=== PATIENT | female | born 1955 | race Caucasian/White ===

== ENCOUNTER 2023-11-25 10:15 | Outpatient (CLI) | payer MEDICARE ==
[2023-11-25 14:14] LABS: CALCIUM 9.8 mg/dL (8.5-10.3); CREATININE 0.9 mg/dL (0.6-1.3); POTASSIUM 3.8 mmol/L (3.5-4.5)
== END 2023-11-25 10:30 | disposition home or self-care (01) ==
LOC: LAB.N 10:15
PROVIDERS: ATTEND Family Medicine
DX: U07.1 COVID-19 (principal)
CPT/HCPCS: 36415; 80048

== ENCOUNTER 2024-01-11 09:30 | Outpatient (CLI) | payer MEDICARE ==
[2024-01-11 11:52] LABS: BASOPHILS # (AUTO) 0.1 10^3/uL (0.0-0.1); BASOPHILS % (AUTO) 1.3 %; EOSINOPHILS # (AUTO) 0.2 10^3/uL (0.0-0.7); EOSINOPHILS % (AUTO) 3.8 %; HCT - HEMATOCRIT 43.7 % (37.0-47.0); HGB - HEMOGLOBIN 13.8 g/dL (12.0-16.0); LYMPHOCYTES # (AUTO) 1.5 10^3/uL (1.5-3.5); LYMPHOCYTES % (AUTO) 31.2 %; MEAN CORPUSCULAR HEMOGLOBIN 29.4 pg (27.0-31.0); MEAN CORPUSCULAR HGB CONC 31.6 g/dL (32.0-36.0); MONOCYTES # (AUTO) 0.5 10^3/uL (0.0-1.0); MONOCYTES % (AUTO) 10.9 %; NEUTROPHILS # (AUTO) 2.5 10^3/uL (1.5-6.6); NEUTROPHILS % (AUTO) 52.2 %; PLT - PLATELET COUNT 313 10^3/uL (130-450); RED CELL DISTRIBUTION WIDTH 13.6 % (12.0-15.0); WHITE BLOOD COUNT 4.8 x10^3/uL (4.8-10.8)
[2024-01-11 12:15] LABS: ALBUMIN 4.5 g/dL (3.2-5.5); ALBUMIN/GLOBULIN RATIO 1.6 (1.0-2.2); ALKALINE PHOSPHATASE 98 IU/L (42-121); ALT ALANINE AMINOTRANSFERASE 31 IU/L (10-60); AST ASPARTATE AMINOTRANSFERASE 23 IU/L (10-42); BILIRUBIN,TOTAL 0.4 mg/dL (0.2-1.0); BUN - BLOOD UREA NITROGEN 12 mg/dL (6-20); CALCIUM 10.2 mg/dL (8.5-10.3); CARBON DIOXIDE - CO2 30 mmol/L (21-32); CHLORIDE 103 mmol/L (101-111); CHOL/HDL RATIO 6.1 (<4.4); CHOLESTEROL 214 mg/dL; CREATININE 0.8 mg/dL (0.6-1.3); GFR - MDRD 71 (>89); GLUCOSE 92 mg/dL (74-104); HDL CHOLESTEROL 35 mg/dL; POTASSIUM 3.6 mmol/L (3.5-4.5); SODIUM 139 mmol/L (135-145); TOTAL PROTEIN 7.3 g/dL (6.4-8.9); TRIGLYCERIDES 765 mg/dL (48-352)
[2024-01-11 12:19] LABS: THYROID STIMULATING HORMONE 1.48 uIU/mL (0.34-5.60)
[2024-01-11 14:02] LABS: LDL CHOLESTEROL,DIRECT 81 mg/dL (75-193); LDLD/HDL RATIO 2.3 (<4.4)
== END 2024-01-11 09:31 | disposition home or self-care (01) ==
LOC: LAB.N 09:30
PROVIDERS: ATTEND Physician Assistant
DX: I10 Essential (primary) hypertension (principal); E78.5 Hyperlipidemia, unspecified
CPT/HCPCS: 36415; 80053; 80061; 83721; 84443; 85025

== ENCOUNTER 2024-02-07 10:22 | Outpatient (CLI) | payer MEDICARE | END 2024-02-07 10:23 | disposition home or self-care (01) | LOC: LAB.N 10:22 | PROVIDERS: ATTEND Physician Assistant | DX: E78.1 Pure hyperglyceridemia (principal) | CPT/HCPCS: 36415; 84478 ==

== ENCOUNTER 2024-04-13 09:21 | Day surgery (SDC) | payer MEDICARE ==
[~2024-04-13 09:21] MED LIST: LIDOCAINE-MPF 2% 5 ML VIAL ONE; PROPOFOL 200 MG/20 ML VIAL IVP ONE
[2024-04-13] MEDS: LACTATED RINGERS 1,000 ML IV ONE ×2 (09:25→11:28)
--- NOTE | 2024-04-13 10:33 | ANESTHESIA ---
Pre-Anesthesia VS, & Labs - Diagnosis Barrets Esophagus - Procedure EGD Vital Signs: Temp Pulse Resp BP Pulse Ox O2 Flow Rate 36.2 C L 77 12 119/87 H 97 04/13/24 09:26 04/13/24 09:26 04/13/24 09:26 04/13/24 09:26 04/13/24 09:26 Height: 5 ft 3 in Weight (kg): 72.1 kg Body Mass Index: 28.1 BMI Classification: Overweight - NPO Last Fluid Intake: 0600 black coffee Last Food Intake: >8hr - Is Patient ?: No Home Medications and Allergies Home Medications: Ambulatory Orders Atorvastatin [Lipitor] 10 mg 04/13/24 Cetirizine HCl [Allergy Relief] 5 mg PO 04/13/24 Enalapril Maleate [Vasotec] 04/13/24 Pantoprazole [Protonix] 04/13/24 Sertraline [Zoloft] 04/13/24 Atorvastatin [Lipitor] 10 mg 04/13/24 Cetirizine HCl [Allergy Relief] 5 mg PO 04/13/24 Enalapril Maleate [Vasotec] 04/13/24 Pantoprazole [Protonix] 04/13/24 Sertraline [Zoloft] 04/13/24 Allergies/Adverse Reactions: Allergies Allergy/AdvReac Type Severity Reaction Status Date / Time No Known Drug Allergies Allergy Verified 04/13/24 09:54 Anes History & Medical History - Anesthetic History Anesthesia Complications: reports: No previous complications Family history of Anesthesia Complications: Denies - Medical History Cardiovascular: reports: Hypertension, High cholesterol, Other Pulmonary: reports: None Gastrointestinal: reports: GERD, Other Urinary: reports: Incontinence Musculoskeletal: reports: Fibromyalgia, Chronic back pain, Other Endocrine/Autoimmune: reports: None Skin: reports: Other Smoking Status: Former smoker Psychosocial: reports: No issues indicated (doesn't drink) - Surgical History General: reports: Appendectomy, EGD, Other Gynecologic: reports: Tubal ligation Results - EKG Results EKG Comparison: Reviewed EKG Exam General: Alert, Oriented x3 Dental: WNL Neck Mobility: Normal Mallampati classification: II Thyromental Distance: 4-6 cm Respiratory: Lungs clear Cardiovascular: Regular rate Plan Anesthesia Type: Total IV Consent for Procedure(s) Verified and Reviewed: Yes Code Status: Attempt Resuscitation ASA classification: 2-Mild systemic disease Is this case an emergency?: No
--- NOTE | 2024-04-13 11:06 | HISTORY & PHYSICAL EXAMINATION ---
Chief Complaint - Chief Complaint Chief Complaint: here for upper endoscopy History of Present Illness - History Obtained From Records Reviewed: yes History obtained from: pt Exam Limitations: none - History of Present Illness HPI Comment/Other: history gerd and barretts for years. she takes protonix daily. here for surveillance egd. History - Past Medical History Cardiovascular: reports: Hypertension, High cholesterol, Other Respiratory: reports: None Endocrine/Autoimmune: reports: None GI: reports: GERD, Other : reports: Incontinence HEENT: reports: None, Chronic hearing loss Psych: reports: Depression, Anxiety Musculoskeletal: reports: Fibromyalgia, Chronic back pain, Other Derm: reports: Other MRSA Hx?: No - Past Surgical History General: reports: Appendectomy, EGD, Other /[employer]: reports: Tubal ligation Meds/Allgy - Home Medications Home Medications: Ambulatory Orders Medication Instructions Recorded Confirmed Atorvastatin [Lipitor] 10 mg 04/13/24 Cetirizine HCl [Allergy Relief] 5 mg PO 04/13/24 Enalapril Maleate [Vasotec] 04/13/24 Pantoprazole [Protonix] 04/13/24 Sertraline [Zoloft] 04/13/24 - Allergies Allergies/Adverse Reactions: Allergies Allergy/AdvReac Type Severity Reaction Status Date / Time No Known Drug Allergies Allergy Verified 04/13/24 09:54 Review of Systems - Other Findings Other Findings: 10 pt ros as above otherwise unremarkable Exam - Vital Signs Vital Signs: Vital Signs x48h Temp Pulse Resp BP Pulse Ox 04/13/24 09:26 36.2 C L 77 12 119/87 H 97 - Physical Exam General Appearance: positive: No acute distress, Alert Eyes Bilateral: positive: PERRL, EOMI ENT: positive: No signs of dehydration Neck: positive: No JVD, Trachea midline Respiratory: positive: No respiratory distress Cardiovascular: positive: Regular rate & rhythm Abdomen: positive: Non-tender, No distention Neurologic/Psychiatric: positive: Oriented x3 Conclusion/Plan - Problem List (1) History of Drew's esophagus Conclusion/Plan: plan egd with biopsies. parq held and consent obtained
[2024-04-13] MEDS ORDERED: PROPOFOL 200 MG/20 ML VIAL IVP ONE (11:23)
[2024-04-13 12:10] VITALS: BP 95/58; O2SAT 97
--- NOTE | 2024-04-13 12:33 | ANESTHESIA POST OP EVALUATION ---
Anesthesia Post Eval - Post Anesthesia Eval Vitals: Last Vital Signs Temp 36.0 C L 04/13/24 12:00 Pulse 70 04/13/24 12:00 Resp 13 04/13/24 12:00 BP 95/58 L 04/13/24 12:00 Pulse Ox 97 04/13/24 12:00 O2 Flow Rate CV Function Including HR & BP: Stable Pain Control: Satisfactory Nausea & Vomiting: Negative Mental Status: Baseline Respiratory Status: Airway Patent Hydration Status: Satisfactory Anesthesia Complications: None
== END 2024-04-13 09:22 | disposition home or self-care (01) ==
LOC: SDS 09:21
PROVIDERS: ATTEND Surgery
PROC: 0DB58ZX Excision of Esophagus, Via Natural or Artificial Opening Endoscopic, Diagnostic (ICD-10-PCS; principal; 2024-04-13 10:30)
DX: Z09 Encounter for follow-up examination after completed treatment for conditions other than malignant neoplasm (principal); K21.9 Gastro-esophageal reflux disease without esophagitis; K31.7 Polyp of stomach and duodenum; K44.9 Diaphragmatic hernia without obstruction or gangrene; Z87.19 Personal history of other diseases of the digestive system; I10 Essential (primary) hypertension; Z87.891 Personal history of nicotine dependence
CPT/HCPCS: 43239; J7120

== ENCOUNTER 2024-05-14 09:16 | Outpatient (CLI) | payer MEDICARE ==
--- NOTE | 2024-05-21 08:07 | Mammography Report ---
BILATERAL DIGITAL SCREENING MAMMOGRAM 3D/2D: 05/14/2024 CLINICAL: Routine screening. Family history of breast cancer. Comparison is made to exams dated: 05/07/2021 mammogram, 05/11/2022 mammogram, and 05/12/2023 mammogram - [facility]. Both breasts are almost entirely fatty (category a/<25% glandular tissue). No significant masses, calcifications, or other findings are seen in either breast. There has been no significant interval change. IMPRESSION: NEGATIVE There is no mammographic evidence of malignancy. A 1 year screening mammogram is recommended. Based on the Tyrer Cuzick model (a risk assessment model) the patient's lifetime risk is 6.0% and her 10 year risk is 3.8%. According to the ACR, ACS, and NCCN guidelines, an annual breast MRI exam carlos g with mammogram is recommended if the patient's lifetime risk is 20% or greater. This exam was interpreted at Station ID: [id number]. NOTE: For mammograms, a report in lay terms will be sent to the patient. Approximately 15% of breast malignancies will not be visualized mammographically. In the management of a palpable breast mass, a negative mammogram must not discourage biopsy of a clinically suspicious lesion. Electronically Signed By: Tanner coello/adina:05/18/2024 14:51:21 letter sent: No_Letter ACR BI-RADS Category 1: Negative 3341F PARENCHYMAL PATTERN: (F) - The breast(s) demonstrate(s) diffuse fatty replacement. BI-RADS CATEGORY: (1) - 1 RECOMMENDATION: (ANNUAL) - Recommend routine annual screening mammography. [id number] 1 year screening LATERALITY: (B)
== END 2024-05-14 09:17 | disposition home or self-care (01) ==
LOC: DI.N 09:16
DX: Z12.31 Encounter for screening mammogram for malignant neoplasm of breast (principal); Z80.3 Family history of malignant neoplasm of breast